=== PATIENT | male | born 1990 | race African-American/Black ===

== ENCOUNTER 2021-09-23 14:01 | Emergency (ER) | payer OTHER ==
[~2021-09-23] VITALS: Ht 182.9 cm; Wt 90.7 kg
[2021-09-23] MEDS ORDERED: PEPCID20 MG PO (16:47)
[2021-09-23] MEDS ORDERED: EPIPEN 2-P0.3 MG/0.3 IM (16:47)
[2021-09-23] MEDS ORDERED: PREDNISONE 20 M20 MG PO (16:47)
[2021-09-23 16:54] VITALS: BP 123/71
== END 2021-09-23 16:59 | disposition home or self-care (01) ==
LOC: ER 14:01
DX: T78.1XXA Other adverse food reactions, not elsewhere classified, initial encounter (principal); R06.02 Shortness of breath; Z91.013 Allergy to seafood; Z88.1 Allergy status to other antibiotic agents; X58.XXXA Exposure to other specified factors, initial encounter